=== PATIENT | female | born 1945 | race Caucasian/White ===

== ENCOUNTER 2017-05-22 08:23 | Emergency (ER) | payer MEDICARE, BC ==
[2017-05-22 08:30] VITALS: BP 149/62
--- NOTE | 2017-05-22 08:44 | UC ---
Skin Complaint HPI - HPI Summary HPI Summary: 3 days of worsening rash on face--itchy and red began after staking tomato plants - History of Current Complaint Hx Obtained From: Patient ?: No Onset/Duration: Sudden Onset, Lasting Days - 3, Still Present Skin Exposure Onset/Duration: Days Ago - 3 Timing: Constant Onset Severity: Mild Current Severity: Moderate Location: Discrete - checks and up both temples Character: Pruritus, Redness Aggravating: Nothing Alleviating: Cold Compresses Associated Signs & Symptoms: Positive: Negative Related History: Possible Reaction to: Environmental Exposure <Anila Levy - Last Filed: 05/22/17 10:49> <Faiza Booth - Last Filed: 05/22/17 11:08> - History of Current Complaint Chief Complaint: UCAllergicReaction Time Seen by Provider: 05/22/17 08:42 Stated Complaint: RED SWOLLEN FACE - Allergy/Home Medications Allergies/Adverse Reactions: Allergies Allergy/AdvReac Type Severity Reaction Status Date / Time walnuts Allergy Unknown Uncoded 05/22/17 08:30 Reaction Details Home Medications: Home Medications Atorvastatin* [Lipitor 20 MG*] 1 tab PO DAILY 05/22/17 [History Confirmed ] Calamine/Pramoxine LOTION* [Caladryl LOTION*] 1 applic TOPICAL DAILY PRN [History Confirmed 05/22/17] Diphenhydramine HCl [Eql Allergy Relief] 1 tab PO Q6HR PRN 05/22/17 [History Confirmed 05/22/17] Famotidine 1 tab PO DAILY 05/22/17 [History Confirmed 05/22/17] Hydrocortisone (Topical) [Hydrocortisone] 1 applic TOPICAL DAILY PRN 05/22/17 [ History Confirmed 05/22/17] Review of Systems Constitutional: Negative Skin: Rash - itchiny, red, blanching Eyes: Negative ENT: Negative Respiratory: Negative Cardiovascular: Negative Gastrointestinal: Negative Genitourinary: Negative Motor: Negative Neurovascular: Negative Musculoskeletal: Negative Neurological: Negative Psychological: Negative All Other Systems Reviewed And Are Negative: Yes <Anila Levy - Last Filed: 05/22/17 10:49> PMH/Surg Hx/FS Hx/Imm Hx Previously Healthy: Yes Endocrine History: Diabetes, Dyslipidemia Cardiovascular History: Hypertension - Surgical History Surgical History: Yes Surgery Procedure, Year, and Place: ankle fx-ORIF. ACL/EUA knee. cardiac cath- 08/19/15 - Family History Known Family History: Positive: None Family History: no cardovascular issues reported in family lineage - Social History Occupation: Retired Lives: With Family Alcohol Use: Occasionally Substance Use Type: None Smoking Status (MU): Never Smoked Tobacco <Anila Levy - Last Filed: 05/22/17 10:49> Physical Exam Triage Information Reviewed: Yes Appearance: Well-Appearing, No Pain Distress, Well-Nourished Vital Signs: Initial Vital Signs Temp 98.6 F 05/22/17 08:24 Pulse 61 05/22/17 08:24 Resp 18 05/22/17 08:24 BP 149/62 05/22/17 08:24 Pulse Ox 100 05/22/17 08:24 Vital Signs Reviewed: Yes Eye Exam: Normal Eyes: Positive: Conjunctiva Clear ENT Exam: Normal ENT: Positive: Normal ENT inspection, Hearing grossly normal, Pharynx normal, TMs normal. Negative: Nasal congestion, Nasal drainage, Tonsillar swelling, Tonsillar exudate, Trismus, Muffled/hoarse voice Dental Exam: Normal Neck exam: Normal Neck: Positive: Supple, Nontender, No Lymphadenopathy Respiratory Exam: Normal Respiratory: Positive: Chest non-tender, Lungs clear, Normal breath sounds, No respiratory distress, No accessory muscle use Cardiovascular Exam: Normal Cardiovascular: Positive: RRR, No Murmur, Pulses Normal, Brisk Capillary Refill Musculoskeletal Exam: Normal Musculoskeletal: Positive: Strength Intact, ROM Intact, No Edema Neurological Exam: Normal Neurological: Positive: Alert, Muscle Tone Normal Psychological Exam: Normal Psychological: Positive: Normal Response To Family, Age Appropriate Behavior Skin Exam: Other Skin: Positive: rashes - both cheecks and temples <Anila Levy - Last Filed: 05/22/17 10:49> Vital Signs: Initial Vital Signs Temp 98.6 F 05/22/17 08:24 Pulse 61 05/22/17 08:24 Resp 18 05/22/17 08:24 BP 149/62 05/22/17 08:24 Pulse Ox 100 05/22/17 08:24 <Faiza Booth - Last Filed: 05/22/17 11:08> Re-Evaluation - Re-Evaluation First Eval Change: Improved - at discharge patient decreasing erythema and discomfort <Anila Levy - Last Filed: 05/22/17 10:49> Course/Dx - Course Course Of Treatment: pepcid, benadryl, prednisone, cool compress follow with pcp, - Differential Diagnoses - Skin Complaint Differential Diagnoses: Cellulitis, Contact Dermatitis, Eczema, Poison Bety, Poison [place] - Diagnoses Provider Diagnoses: hypertension in poor control, allergic rx to plant exposure <Anila Levy - Last Filed: 05/22/17 10:49> Discharge <Anila Levy - Last Filed: 05/22/17 10:49> <Faiza Booth - Last Filed: 05/22/17 11:08> - Discharge Plan Condition: Stable Disposition: HOME Prescriptions: Diphenhydramine HCl [Benadryl Allergy 25 MG TAB] 25 - 50 mg PO Q6H PRN #40 tab PRN Reason: Itching Famotidine TAB* [Pepcid 20 MG TAB*] 20 mg PO BID #10 tab predniSONE TAB* [Deltasone TAB*] 10 mg PO DAILY #20 tab Patient Education Materials: Contact Dermatitis (ED) Referrals: Jonna Ramirez MD [Primary Care Provider] - If Needed Attestation Statement User Type: Provider - I was available for consult. This patient was seen by the IESHA. The patient was not presented to, seen by, or examined by me. -Boo <Faiza Booth - Last Filed: 05/22/17 11:08>
[2017-05-22] MEDS ORDERED: diPHENhydraMINE PO* 50 MG PO ONE (08:52)
[2017-05-22] MEDS ORDERED: predniSONE TAB* 20 MG PO ONE (08:52)
[2017-05-22] MEDS ORDERED: Famotidine TAB* 20 MG PO ONE (08:53)
== END 2017-05-22 09:57 | disposition home or self-care (01) ==
LOC: UCEAST 08:23
DX: T78.49XA Other allergy, initial encounter (principal); E11.9 Type 2 diabetes mellitus without complications; E78.5 Hyperlipidemia, unspecified; I10 Essential (primary) hypertension; Y93.H2 Activity, gardening and landscaping
CPT/HCPCS: 99212; A9270-GY; G0463; J7512

== ENCOUNTER 2017-12-20 11:16 | Emergency (ER) | payer MEDICARE, OTHER ==
[2017-12-20 13:35] VITALS: BP 112/59
[2017-12-20] MEDS ORDERED: HYDROcodone/ACETAMIN 5-325 MG* 1 TAB PO ONE (13:38)
[2017-12-20] MEDS ORDERED: Albuterol/Ipratropium NEB.SOL* Albuterol 2.5 MG/Ipratropium 0.5 MG 3 ML INH ONE (13:38)
[2017-12-20] MEDS ORDERED: Ketorolac INJ* 60 MG/2 ML VIAL IM ONE (13:38)
--- NOTE | 2017-12-20 14:03 | RAD ---
Indication: Cough, asthma. 2 views of the chest including dual energy PA views are reviewed. There is no mediastinal shift. Heart is of normal size and configuration. Lung parr are IMPRESSION: No active cardiopulmonary disease is noted.
--- NOTE | 2017-12-21 21:41 | UC ---
Donald Ventura Nilda, scribed for Albert Eng MD on 12/20/17 at 1337 . Respiratory Complaint HPI - HPI Summary HPI Summary: This patient is a 72 year old F presenting to [facility] [place] accompanied by with a chief complaint of constant URI symptoms for the past 4 days. The patient rates the pain 5/10 in severity. Symptoms aggravated and alleviated by nothing. Patient reports fever (2 days), cough, lightheadedness, and wheezing. - History of Current Complaint Chief Complaint: UCRespiratory Stated Complaint: resp Time Seen by Provider: 12/20/17 13:27 Hx Obtained From: Patient Onset/Duration: Sudden Onset, Lasting Days, Still Present Timing: Constant Severity Currently: Moderate Pain Intensity: 5 Pain Scale Used: 0-10 Numeric Character: Cough: Nonproductive Aggravating Factors: Nothing Alleviating Factors: Nothing Associated Signs And Symptoms: Positive: Fever, Wheezing - Allergies/Home Medications Allergies/Adverse Reactions: Allergies Allergy/AdvReac Type Severity Reaction Status Date / Time walnuts Allergy Unknown Uncoded 12/20/17 13:31 Reaction Details PMH/Surg Hx/FS Hx/Imm Hx Respiratory History: Asthma - Surgical History Surgical History: Yes Surgery Procedure, Year, and Place: ankle fx-ORIF. ACL/EUA knee. cardiac cath- 08/19/15 - Family History Known Family History: Positive: None Negative: Cardiac Disease, Hypertension, Diabetes Family History: no cardovascular issues reported in family lineage - Social History Alcohol Use: Occasionally Substance Use Type: None Smoking Status (MU): Never Smoked Tobacco Review of Systems Constitutional: Fever Respiratory: Cough, Other - wheezing Neurological: Other - lightheadedness All Other Systems Reviewed And Are Negative: Yes Physical Exam Triage Information Reviewed: Yes Vital Signs: Initial Vital Signs Temp 98.8 F 12/20/17 13:32 Pulse 89 12/20/17 13:32 Resp 18 12/20/17 13:32 BP 112/59 12/20/17 13:32 Pulse Ox 93 12/20/17 13:32 Vital Signs Reviewed: Yes - Additional Comments VITAL SIGNS: Reviewed. GENERAL: Patient is a well developed and nourished female with some distress secondary to the shortness of breath. However, she is able to speak in full sentences. HEAD AND FACE: Normocephalic and atraumatic. EYES: PERRLA, EOMI x 2, No injected conjunctiva. EARS: Hearing grossly intact. Ear canals and tympanic membranes WNL MOUTH: Dry oral mucosa. NECK: Supple, trachea is midline, no adenopathy, no JVD, no carotid bruit. CHEST: Symmetric, No intercostal or abdominal retraction, LUNGS: Diffuse bilateral wheezing and decreased breath sounds.No crackles. CVS: RRR,, S1 and S2 present, no murmurs or gallops appreciated. ABDOMEN: Soft, non-tender. No signs of distention. Positive BS. No rebound, no guarding, and no masses palpated. EXTREMITIES: FROM in all major joints, no edema, no cyanosis or clubbing. NEURO: Alert and oriented x 3. No acute neurological deficits. Speech is normal and follows commands. SKIN: Dry and warm Diagnostic Evaluation - Laboratory O2 Sat by Pulse Oximetry: 93 - Radiology Radiology Interpretation Completed By: Radiologist - CXR, per radiologist, reveals no active cardiopulmonary disease is noted. Dr. Eng has reviewed this radiology report. Respiratory Course/Dx - Course Course Of Treatment: This patient is a 72 year old F presenting to [facility] [place] accompanied by with a chief complaint of constant URI symptoms for the past 4 days. The patient rates the pain 5/10 in severity. Symptoms aggravated and alleviated by nothing. Patient reports fever (2 days), cough, lightheadedness, and wheezing. In UC course, pt was given Toradol, [place], and Duoneb. CXR, per radiologist, reveals no active cardiopulmonary disease is noted. Dr. Eng has reviewed this radiology report. Pending flu test. Influenza A positive. Influenza B negative. Pt is stable and will be D/C with a Dx of influenza and a prescription for Tamiflu. I discussed all the findings and test results with the patient. Pt was instructed to return to the urgent care or go to ER immediately if any of the symptoms return or worsens. Plan of care was discussed with the patient and pt understands and agrees. All questions were answered to patient satisfaction. There were no further complaints or concerns. - Differential Dx/Diagnosis Differential Diagnosis/HQI/PQRI: Asthma, Bronchitis, Exacerbation Of COPD, Lower Resp Infection Provider Diagnoses: Influenza Discharge - Discharge Plan Condition: Stable Disposition: HOME Prescriptions: Oseltamivir CAP* [Tamiflu CAP*] 75 mg PO BID #10 cap Referrals: Jonna Ramirez MD [Primary Care Provider] - 3 Days The documentation as recorded by the Donald shore Nilda accurately reflects the service I personally performed and the decisions made by , Albert Eng MD.
== END 2017-12-20 15:00 | disposition home or self-care (01) ==
LOC: UCEAST 11:16
DX: J11.1 Influenza due to unidentified influenza virus with other respiratory manifestations (principal); J45.909 Unspecified asthma, uncomplicated
CPT/HCPCS: 71046; 87502; 96372; 99212; A9270-GY; G0463; J1885

== ENCOUNTER → 2019-04-23 07:26 | Day surgery (SDC) | payer MEDICARE, OTHER ==
[~2019-04-23 07:26] MED LIST: Acetaminophen TAB* 325 MG ONE; Acetaminophen TAB* 325 MG PO PRN; Buffered Lidocaine 1% SYRIN* 1 ML/SYRINGE INTRADERM ONE; Dexamethasone IV* 4 MG/ML 1 ML (4 MG) ONE; DiMENhydriNATE IV* 50 MG/ML VIAL IV PUSH PRN; DiMENhydriNATE IV* 50 MG/ML VIAL ONE; Famotidine IV* 10 MG/ML 2 ML (20 mg) IV SLOW PU ONE; Famotidine IV* 10 MG/ML 2 ML (20 mg) ONE; HYDROmorphone INJ1* 1 MG/ML SYRINGE ONE; Ketorolac INJ* 30 MG/ML 1 ML VIAL ONE; Lactated Ringers 1000 ML Bag* 1,000 ML IV SCH; Lidocaine 1% MPF wEPI 200,000* 30 ML SDV ONE; Midazolam* 1 MG/ML 5 ML VIAL (5 MG) ONE; Naloxone* 0.4 MG/ML 1 ML VIAL IV PRN; Ondansetron INJ* 2 MG/ML VIAL ONE; Propofol* 10 MG/ML 20 ML BTL ONE; ceFAZolin 2 GM PREMIX in ORs 2 GM/50 ML BAG ONE; fentaNYL* 50 MCG/ML 2 ML VIAL (100 MCG VIAL) ONE; oxyCODONE TAB* 5 MG TAB PO PRN
[2019-04-23] MEDS: HYDROmorphone INJ1* 1 MG/ML SYRINGE IV PRN ×3 (10:40→11:02)
[2019-04-23 12:01] VITALS: BP 142/96
--- NOTE | 2019-04-24 07:15 | OP ---
DATE OF SURGERY: 04/23/19 - [facility] DATE OF : 49 SURGEON: Karishma August MD [employer] DRIVER: None available. ANESTHESIOLOGIST: Dr. Joseph. ANESTHESIA: General. PRE-OP DIAGNOSIS: Left knee displaced medial meniscus tear and arthritis. POST-OP DIAGNOSIS: Left knee displaced medial meniscus tear and arthritis. OPERATIVE PROCEDURE: Left knee arthroscopy with partial medial and lateral meniscectomy and chondroplasty. ESTIMATED BLOOD LOSS: Minimal. TOURNIQUET TIME: Zero minutes. INDICATIONS: Michelle Funez is a 73-year-old female with longstanding mild-to- moderate osteoarthritis who had an acute injury where she sustained injury to her knee. She failed physical therapy, underwent MRI, diagnosed with a displaced medial meniscus tear. She has had blocked motion and persistent pain. She has failed injections, physical therapy, antiinflammatories and elected to proceed with surgical treatment. Risks and benefits were discussed at length including, but not limited to bleeding, infection, damage to nerves, vessels, surrounding structures, wound healing, persistent pain, need for further surgery, scarring, stiffness, incomplete relief of symptoms, risk of anesthesia. She is aware that the meniscus will not take away the arthritic pain. She may need total knee at some point down the road. She has verbalized understanding and is now ready for that. DESCRIPTION OF PROCEDURE: The patient was greeted in the preoperative area by the attending surgeon. Correct extremity was marked and consent was confirmed. The patient was brought back to the operating suite where she was placed in supine position on the operating table and underwent general anesthesia and LMA intubation, after which she was appropriately positioned in bed, lateral post was positioned. An unsterile tourniquet was placed high on the proximal thigh. Right leg was then prepped and draped in the usual sterile fashion beginning with chlorhexidine soap scrub, and alcohol wipe and final prep of ChloraPrep. After appropriate surgical pause indicating side, site, procedure, administrations of antibiotics, the knee was injected intra-articularly with 1% lidocaine with epi. The anterolateral portal was then made using an 11-blade. The scope was then brought into the joint. Joint was examined. There was abundant synovitis and fat pad. The anteromedial portal was made in outside-in fashion using 18-gauge needle for localization. The shaver was used to debride back the anterior fat pad and debris. There was a meniscus process evident. It was debrided back using the shaver and then there was further meniscus fat that was displaced posteriorly behind the condyle. The bitters and akua were used to debride this back. A small chondroplasty was done at the medial femoral condyle as well, had grade 2 changes and then a small area about 5 cm x 1 cm that was proximally about the knee that with grade 3 and 4 changes. The tibial plateau had grade 1 and 2 changes. Once the meniscus was stabilized and any loose debris was removed, attention was directed to the lateral compartment was examined, there was grade 2 changes and unstable fraying of the lateral femoral condyle and lateral plateau. The meniscus had unstable fraying at the root as well as the body which was debrided back using akua and bitters. The knee was taken to full extension. The femoral had grade 1 to 2 changes. Trochlea had areas of grade 2 changes. The lateral and medial gutters were intact without any loose debris. Once this was completed, the scope was brought to the Moore portal to make sure there was no flap posteriorly and there was not. The knee was then thoroughly lavaged and removed of any loose debris. The wounds were copiously irrigated with sterile saline. The portals were closed with 3-0 nylon and sterile dressings were applied. The knee was superficially and intra-articularly injected with 0.2% of ropivacaine. She was awoken from anesthesia and transferred to PACU in stable condition. POSTOPERATIVE PLAN: She will be weightbearing as tolerated. She will be discharged on pain medication. DVT prophylaxis was considered but deferred due to no previous personal or family history. I will see the patient back in 10 to 14 days. [id number]/[facility] #: [id number] BLAISE
== END | disposition home or self-care (01) ==
LOC: OR 07:26
PROVIDERS: ATTEND Orthopaedic Surgery
DX: S83.242A Other tear of medial meniscus, current injury, left knee, initial encounter (principal); S83.282A Other tear of lateral meniscus, current injury, left knee, initial encounter; X58.XXXA Exposure to other specified factors, initial encounter; Y92.9 Unspecified place or not applicable; E11.9 Type 2 diabetes mellitus without complications; Z79.84 Long term (current) use of oral hypoglycemic drugs; I45.10 Unspecified right bundle-branch block; M19.90 Unspecified osteoarthritis, unspecified site; I10 Essential (primary) hypertension; E78.00 Pure hypercholesterolemia, unspecified; J45.909 Unspecified asthma, uncomplicated; K21.9 Gastro-esophageal reflux disease without esophagitis
CPT/HCPCS: A9270-GY; J0690; J1100; J1170; J1240; J1885; J2001; J2250; J2405; J2704; J3010